=== PATIENT | female | born 1955 | race Caucasian/White ===

== ENCOUNTER 2019-05-18 16:37 | Emergency (ER) | payer SELFPAY ==
--- NOTE | 2019-05-18 17:07 | ER Document Report ---
ED General - General Chief Complaint: Back Pain Stated Complaint: BACK PAIN Time Seen by Provider: 05/18/19 16:50 - HPI Notes: Patient is a 63-year-old female who presents emergency department for evaluation of chest pain, radiating to the back. She states this started over the last several days. She was initially being treated for shingles. She states that she was on prednisone for that until . She states starting then she started having an increase in her pain. Her pain changed in character over the last 48 hours. She states it seems to be in her back and radiates forward to her chest. It seems to be on both sides. She states when the pain is severe she feels somewhat short of breath. She denies any associated nausea, diaphoresis, near syncope. She states she does feel just exceptionally weak. She does note that when lifting groceries yesterday her pain seems to be worsened. Nothing seems to make it better. - Related Data Home Medications: Patient is on multiple supplements, no prescription medications or regular hwsm-jle-myeytrk medications otherwise Past Medical History - General Information source: Patient - Social History Smoking Status: Never Smoker Family History: CAD Musculoskeletal Medical History: Reports Other - Vertebral compression fracture Review of Systems - Review of Systems Constitutional: No symptoms reported EENT: No symptoms reported Cardiovascular: See HPI Respiratory: No symptoms reported Gastrointestinal: No symptoms reported Genitourinary: No symptoms reported Musculoskeletal: See HPI Skin: No symptoms reported Neurological/Psychological: No symptoms reported Physical Exam - Vital signs Vitals: Resp Pulse Ox 17 98 05/18/19 16:46 05/18/19 16:46 - Notes Notes: Vital signs reviewed, please refer to chart. Head is normocephalic, atraumatic. Pupils equal round, reactive to light. Neck is supple without meningismus. Heart is regular rate and rhythm. Lungs are clear to auscultation bilaterally. Abdomen is soft, nontender, normoactive bowel sounds throughout. Extremities without cyanosis, clubbing. Posterior calves are nontender. Peripheral pulses are equal. Skin is warm and dry. She does have the sequelae of healing shingles rash on the left, approximately the eighth dermatome. No active vesicles. Patient is awake, alert, neurological exam is nonfocal. Examination of the spine is no midline tenderness or step-off. She has marked paraspinal musculature tenderness at approximately T2-T4, right greater than left. Course - Re-evaluation Re-evalutation: 05/18/19 20:03 Patient presents emergency department for evaluation of chest pain with radiation into the back. Her back pain was reproducible. I was concerned, however, with this presentation of pain for the possibility of an aortic dissection or pulmonary embolus. Laboratory investigations were obtained, CT angiogram of the chest abdomen pelvis ordered as well. Laboratory vesication's failed to reveal any significant abnormality. CTA failed to reveal any signs of abnormality of her aorta or lungs. Patient states that her pain is exacerbated by moving from the CT table. I strongly suspect this is all musculoskeletal in nature. I did offer her medication, she states that she is "very sensitive" to most medications. I told her that I would write her a small amount of a muscle relaxer and anti-inflammatory, she could take these at her discretion. Otherwise we will refer her on to primary care, she is to return to the ED with worsening or new concerning symptoms of any sort. - Vital Signs Vital signs: Temp Pulse Resp BP Pulse Ox 12 114/64 100 05/18/19 17:00 05/18/19 16:49 05/18/19 17:01 - Laboratory Result Diagrams: 05/18/19 16:55 05/18/19 16:55 Laboratory results interpreted by me: 05/18/19 05/18/19 16:55 16:55 Lymph % (Auto) 12.4 L Seg Neutrophils % 79.8 H Calcium 10.5 H - EKG Interpretation by Me Additional EKG results interpreted by me: 05/18/19 17:06 Sinus mechanism with rate of 72 bpm. Normal axis and intervals, no acute ST changes concerning for ischemia or infarction. Discharge - Discharge Clinical Impression: Musculoskeletal back pain Chest pain Qualifiers: Chest pain type: unspecified Qualified Code(s): R07.9 - Chest pain, unspecified Condition: Stable Disposition: HOME, SELF-CARE Instructions: Warm Packs ([facility]), Chest Pain of Unclear Cause ([facility]) Additional Instructions: Moist heat to the painful area as discussed. Take medications as prescribed, preferably with food. Follow-up with primary care next week. Return the emerg ency department with worsening or concerning symptoms of any sort.
[2019-05-18 17:12] LABS: ABSOLUTE BASOPHILS # (AUTO) 0.1 10^3/uL (0.0-0.2); ABSOLUTE EOSINOPHILS # (AUTO) 0.1 10^3/uL (0.0-0.6); ABSOLUTE LYMPHOCYTES (AUTO) 1.1 10^3/uL (0.5-4.7); ABSOLUTE MONOCYTES (AUTO) 0.6 10^3/uL (0.1-1.4); ABSOLUTE NEUT (AUTO) 7.2 10^3/uL (1.7-8.2); BASOPHILS % (AUTO) 0.7 % (0-2); EOSINOPHILS % (AUTO) 0.7 % (0-6); HEMATOCRIT 37.7 % (36.0-47.0); HEMOGLOBIN 12.9 g/dL (12.0-15.5); LYMPHOCYTES % (AUTO) 12.4 % (13-45); MEAN CORPUSCULAR HEMOGLOBIN 30.5 pg (27.0-33.4); MEAN CORPUSCULAR HGB CONC 34.1 g/dL (32.0-36.0); MEAN CORPUSCULAR VOLUME 89 fl (80-97); MONOCYTES % (AUTO) 6.4 % (3-13); PLATELET COUNT 252 10^3/uL (150-450); RED BLOOD COUNT 4.22 10^6/uL (3.72-5.28); SEGMENTED NEUTROPHILS % (AUTO) 79.8 % (42-78); TOTAL CELLS COUNTED % (AUTO) 100 %
[2019-05-18 17:30] LABS: ALBUMIN 4.4 g/dL (3.5-5.0); ALKALINE PHOSPHATASE 51 U/L (38-126); ANION GAP 8 (5-19); ASPARTATE AMINO TRANSFERASE 21 U/L (14-36); BLOOD UREA NITROGEN 8 mg/dL (7-20); CALCIUM 10.5 mg/dL (8.4-10.2); CARBON DIOXIDE 26 mmol/L (22-30); CHLORIDE 104 mmol/L (98-107); CREATINE KINASE 38 U/L (30-135); GLUCOSE 100 mg/dL (75-110); TOTAL PROTEIN 7.1 g/dL (6.3-8.2)
[2019-05-18 17:42] LABS: CREATINE KINASE MB 0.26 ng/mL (<4.55)
[2019-05-18 17:43] LABS: TROPONIN I < 0.012 ng/mL
--- NOTE | 2019-05-18 18:17 | RADIOLOGY REPORT (SQ) ---
EXAM DESCRIPTION: CTA CHEST COMPLETED DATE/TIME: 05/18/2019 5:54 pm REASON FOR STUDY: chest pain, radiation to back, eval aorta COMPARISON: None. TECHNIQUE: CT scan of the chest performed using helical scanning technique with dynamic intravenous contrast injection. Images reviewed with lung, soft tissue and bone windows. Reconstructed coronal and sagittal MPR images reviewed. Additional 3 dimensional post-processing performed to develop Maximal Intensity Projection images ([place] P). All images stored on PACS. All CT scanners at this facility use dose modulation, iterative reconstruction, and/or weight based d osing when appropriate to reduce radiation dose to as low as reasonably achievable (ALARA). [facility]: Dose Right [facility]: CareDose [facility]: Dose Right [facility]: Teradose 4D [facility]: Lumiy CONTRAST TYPE AND DOSE: contrast/concentration: Isovue 350.00 mg/ml; Total Contrast Delivered: 53.0 ml; Total Saline Delivered: 78.0 ml RENAL FUNCTION: GFR > 60. RADIATION DOSE: CT Rad equipment meets quality standard of care and radiation dose reduction techniq ues were employed. CTDIvol: 14.3 - 19.8 mGy. DLP: 578 mGy-cm. . LIMITATIONS: None. FINDINGS: LUNGS AND PLEURA: No masses, infiltrates, or pneumothorax. No pleural effusions or pleura l calcifications. AORTA AND GREAT VESSELS: No aneurysm. Contrast bolus not optimized for the aorta. HEART: No pericardial effusion. No significant coronary artery calcifications. PULMONARY ARTERIES: No emboli visualized in the main pulmonary arteries or the segmental branches. HILAR AND MEDIASTINAL STRUCTURES: No identified masses or abnormal nodes. HARDWARE: None in the chest. UPPER ABDOMEN: No significant findings. Limited exam. THYROID AND OTHER SOFT TISSUES: No masses. No adenopathy. BONES: Nothing acute. Osteopenia. Old compression fracture T9. 3D MIPS: Confirm above findings. OTHER: No other significant finding. IMPRESSION: No aneurysm or dissection. No acute findings. COMMENT: Quality ID # [id number]: Final reports with documentation of one or more dose reduction techniques (e.g., Automated exposure control, adjustment of the mA and/or kV according to patient size, use of iterative reconstruction technique) TECHNICAL DOCUMENTATION: JOB ID: [id number] [employer]- All Rights Reserved Reading location - IP/workstation name: [email or web address]
[2019-05-18 20:14] VITALS: BP 109/64
--- NOTE | 2019-05-18 21:25 | EKG REPORT ---
SEVERITY:- NORMAL ECG - SINUS RHYTHM : Confirmed by: Ck William MD 18-May-2019 21:24:48
== END 2019-05-18 20:14 | disposition home or self-care (01) ==
LOC: ER 16:37
DX: M54.9 Dorsalgia, unspecified (principal); R07.9 Chest pain, unspecified
CPT/HCPCS: 36415; 71275; 80053; 82550; 82553; 84484; 85025; 93005; 93010; 99284

== ENCOUNTER 2019-12-24 08:30 | Emergency (ER) | payer MEDICARE, OTHER ==
--- NOTE | 2019-12-24 08:57 | ER Document Report ---
ED GI/ - General Mode of Arrival: Medic Information source: Patient TRAVEL OUTSIDE OF THE [place] IN LAST 30 DAYS: No <KEL MAIN - Last Filed: 12/24/19 14:46> <JYOTSNA BARCLAY - Last Filed: 12/24/19 16:23> - General Chief Complaint: Constipation Stated Complaint: ABDOMINAL PAIN Time Seen by Provider: 12/24/19 08:41 Primary Care Provider: BHAVANA GIMENEZ PA-C [Primary Care Provider] - Follow up as needed Notes: 64-year-old woman presents to the emergency department with a complaint of the patient. She states for the past 3 days she has not had a bowel movement. She is given herself Colace and also a fleets enema last night with poor results. Notes a history of compression fractures in lower back and has had increasing back pain over the past 3 days. Using Tylenol and ibuprofen for pain, has discontinued it as the constipation has worsened. Called her primary care doctor and was directed to come to the emergency department. (KEL MAIN) - HPI Notes: 12/24/19 16:19 Patient is a 64-year-old female who presents to the emergency department for evaluation of constipation. She states she normally actually has diarrhea. She has a history of multiple compression fractures in her back. She states she notices "events" that caused her an increase in pain. She normally takes Tylenol or ibuprofen. She states that a little over 2 weeks ago she had another "event" and had an increase in her back pain. She states that since then she has had constipation. She saw her primary care provider, who recommended Colace, then a fleets enema. She did have a small amount of relief with that, but states she really has not had much of a bowel movement in the last 5 days. She is still passing gas. She denies any incontinence, no saddle anesthesia, no focal numbness or weakness. (JYOTSNA BARCLAY) - Related Data Allergies/Adverse Reactions: No Known Allergies Allergy (Verified 12/24/19 08:37) Past Medical History - Social History Smoking Status: Never Smoker Frequency of alcohol use: Occasional Drug Abuse: None Family History: CAD Patient has homicidal ideation: No <KEL MAIN - Last Filed: 12/24/19 14:46> Review of Systems <KEL MAIN - Last Filed: 12/24/19 14:46> - Review of Systems Notes: Constitutional: Negative for fever. HENT: Negative for sore throat. Eyes: Negative for visual changes. Cardiovascular: Negative for chest pain. Respiratory: Negative for shortness of breath. Gastrointestinal: + Constipation Genitourinary: Negative for dysuria. Musculoskeletal: +back pain. Skin: Negative for rash. Neurological: Negative for headaches, weakness or numbness. 10 point ROS negative except as marked above and in HPI. (KEL MAIN) Physical Exam <KEL MAIN - Last Filed: 12/24/19 14:46> <JYOTSNA BARCLAY - Last Filed: 12/24/19 16:23> - Vital signs Vitals: Temp 98.1 F 12/24/19 08:30 - Notes Notes: PHYSICAL EXAMINATION: Physical Exam: General: Well-nourished well-developed 64 yo in no acute distress HEENT: NC/AT, pupils equal round and reactive to light, MM moist,nares clear, oropharynx clear, airway patent Neck: supple, no adenopathy, no masses. Good range of motion Lungs: clear, no wheezing, no rales no rhonchi CVS: Regular rate and rhythm no murmur gallop or rub Abdomen: Soft, active, nontender, no masses Extremity/musculoskeletal: + Lumbar back pain L3-4-5 region, tenderness in the paraspinous muscle group Neuro: Alert and responsive, moving all 4 extremities on command, cranial nerves intact, no focal findings Skin: Intact no open lesions, no rash PSYCH: Normal mood, normal affect. (KEL MAIN) Head is normocephalic and atraumatic, pupils are equal round, reactive to light. Oral mucosa is moist. Heart regular rhythm, lungs are clear bilaterally. Abdomen soft, nontender, normoactive bowel sounds. (JYOTSNA BARCLAY) Course - Diagnostic Test Radiology reviewed: Image reviewed, Reports reviewed - X-ray KUB: Moderate constipation, no obstruction. CT lumbar spine: Multiple level compression fracture, age indeterminate, suggest MRI. <NILSAKEL NARANJO - Last Filed: 12/24/19 14:46> - Diagnostic Test Radiology reviewed: Reports reviewed <JYOTSNA BARCLAY - Last Filed: 12/24/19 16:23> - Re-evaluation Re-evalutation: 12/24/19 14:34 CT scan of the lumbosacral spine was performed reveals multiple compression fractures suggested MRI be performed to identify acuity and possible candidate for kyphoplasty. Patient was given soapsuds enema with very little response. 12/24/19 14:46 I discussed the patient with Dr. Barclay, she will follow-up on the MRI and also constipation. (KEL MAIN) 12/24/19 16:20 Patient presents to the emergency department for evaluation. She was initially seen by Dr. Main. The patient's MRI revealed subacute appearing compression fractures, spinal stenosis. Nothing acute. Patient states that this is not surprising, her pain seems consistent with that. In regards to her constipation, the patient did have some increased results after returning from MRI. She states that primarily her discomfort is on the right side. I would like to try her with a stimulant laxative at home. 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 I sent her with a bottle of magnesium citrate, which she is to drink upon going home. We talked at length about dietary choices which may decrease her constipation. She understands that, given that this is a significant change in her bowel habits, it may be advisable as well for her to have a colonoscopy. She voiced understanding to this. Otherwise, she is to follow-up with rheumatology, primary care, and GI as discussed. Return to the ED with worsening or new concerning symptoms of any sort. (JYOTSNA BARCLAY) - Vital Signs Vital signs: Temp Pulse Resp BP Pulse Ox 98.3 F 72 17 133/71 H 99 12/24/19 12:13 12/24/19 12:13 12/24/19 12:13 12/24/19 12:13 12/24/19 12:13 - Laboratory Laboratory results interpreted by me: 12/24/19 09:27 Urine Ketones TRACE H - Diagnostic Test Radiology results interpreted by me: 12/24/19 16:21 KUB X-Ray 12/24/19 08:55 IMPRESSION: Moderate constipation. No obstruction. Lumbar Spine CT 12/24/19 08:55 IMPRESSION: 1. Multiple compression fractures including T12, L2, L3, L4 and L5. Age is indeterminate. No retropulsion. Recommend MRI for further evaluation. The patient may be a candidate for kyphoplasty. If the patient cannot have MRI bone scan would be indicated. 2. Moderate to severe central canal stenosis at L4-L5 secondary to annular disc bulging and bilateral facet arthropathy. There is asymmetric narrowing of the right neural foramina. Lumbar Spine MRI 12/24/19 12:00 IMPRESSION: Mild facet and ligament hypertrophy with mild central canal stenosis at L3-4. Broad-based disc bulge with mild facet and ligament hypertrophy with moderate central canal stenosis and mild right foraminal stenosis at L4-5. Multilevel compression changes that do not appear acute. (JYOTSNA BARCLAY) Discharge <KEL MAIN - Last Filed: 12/24/19 14:46> <JYOTSNA BARCLAY - Last Filed: 12/24/19 16:23> - Discharge Clinical Impression: Compression fracture Lumbar spinal stenosis Qualifiers: Neurogenic claudication status: without neurogenic claudication Qualified Code(s): M48.061 - Spinal stenosis, lumbar region without neurogenic claudication Constipation Qualifiers: Constipation type: unspecified constipation type Qualified Code(s): K59.00 - Constipation, unspecified Condition: Stable Disposition: HOME, SELF-CARE Instructions: Constipation ([facility]), Compression Fracture of the Spine ([facility]) Additional Instructions: Please follow-up with your primary care provider, and commission for the blind director. You kathy uld also discuss a possible colonoscopy with gastroenterology regarding this change in bowel habits. Continue your Tylenol and ibuprofen, you can take ibuprofen 400 mg every 6 hours, and Tylenol 975 mg every 8 hours as discussed. Please be sure to take the Tylenol with food. Otherwise increase water and fiber intake. Drink all of the magnesium citrate at home as prescribed. Please be aware this will cause cramping. If you develop worsening or new concerning symptoms of any sort, please return immediately to the emergency department for evaluation. Referrals: BHAVANA GIMENEZ PA-C [Primary Care Provider] - Follow up as needed
[2019-12-24 09:49] LABS: APPEARANCE,URINE CLEAR; BILIRUBIN,URINE NEGATIVE (NEGATIVE); COLOR,URINE STRAW; GLUCOSE, URINE NEGATIVE (NEGATIVE); KETONES,URINE TRACE mg/dL (NEGATIVE); LEUKOCYTE ESTERASE,URINE NEGATIVE (NEGATIVE); NITRITE,URINE NEGATIVE (NEGATIVE); PROTEIN,URINE NEGATIVE (NEGATIVE); URINE SPECIFIC GRAVITY 1.003; UROBILINOGEN,URINE NEGATIVE mg/dL (<2.0)
--- NOTE | 2019-12-24 10:19 | RADIOLOGY REPORT (SQ) ---
EXAM DESCRIPTION: KUB/ABDOMEN (SINGLE VIEW) IMAGES COMPLETED DATE/TIME: 12/24/2019 10:00 am REASON FOR STUDY: Constipation COMPARISON: None. NUMBER OF VIEWS: One view. TECHNIQUE: Supine radiographic image of the abdomen acquired. LIMITATIONS: None. FINDINGS: BOWEL GAS PATTERN: Gas pattern is nonobstructive. There is large amount of stool througho ut the colon consistent with constipation. CALCIFICATIONS: No suspicious calcifications. SOFT TISSUES: No gross mass or suggestion of organomegaly. HARDWARE: None in the abdomen. BONES: No acute fracture. No worrisome bone lesions. OTHER: No other significant finding. IMPRESSION: Moderate constipation. No obstruction. TECHNICAL DOCUMENTATION: JOB ID: [id number] 2010 [employer] All Rights Reserved Reading location - IP/workstation name: [email or web address]
--- NOTE | 2019-12-24 10:25 | RADIOLOGY REPORT (SQ) ---
EXAM DESCRIPTION: CT LUMBAR SPINE WITHOUT IMAGES COMPLETED DATE/TIME: 12/24/2019 10:04 am REASON FOR STUDY: Compression fracture COMPARISON: None. TECHNIQUE: Axial images acquired through the lumbar spine without intravenous contrast. Images revi ewed with lung, soft tissue and bone windows. Reconstructed coronal and sagittal MPR images reviewed . All images stored on PACS. All CT scanners at this facility use dose modulation, iterative reconstruction, and/or weight based d osing when appropriate to reduce radiation dose to as low as reasonably achievable (ALARA). [facility]: Dose Right [facility]: CareDose [facility]: Dose Right [facility]: Teradose 4D [facility]: MyAGENT RADIATION DOSE: mGy. LIMITATIONS: None. FINDINGS: SEGMENTATION: Normal. No transitional anatomy. ALIGNMENT: Normal. VERTEBRAL BODIES: There compression deformities involving T12, L2, L3, L4 and L5. Ages are indetermi todd. There is no retropulsion. DISCS: Broad-based annular disc bulging at 4 5. This along with the set arthropathy results in moder ate to severe central stenosis. There is asymmetric narrowing of the right neural foramina. PEDICLES, TRANSVERSE PROCESSES: No fractures. No dislocation. No acute findings. FACETS, POSTERIOR ELEMENTS: No fractures. No dislocation. No spinal stenosis. HARDWARE: None in the spine. VISUALIZED RIBS: No fractures. SOFT TISSUES: No significant or acute finding in adjacent soft tissues. OTHER: No other significant finding. IMPRESSION: 1. Multiple compression fractures including T12, L2, L3, L4 and L5. Age is indetermina te. No retropulsion. Recommend MRI for further evaluation. The patient may be a candidate for kyph oplasty. If the patient cannot have MRI bone scan would be indicated. 2. Moderate to severe central canal stenosis at L4-L5 secondary to annular disc bulging and bilatera l facet arthropathy. There is asymmetric narrowing of the right neural foramina. TECHNICAL DOCUMENTATION: JOB ID: [id number] Quality ID # [id number]: Final reports with documentation of one or more dose reduction techniques (e.g., Au tomated exposure control, adjustment of the mA and/or kV according to patient size, use of iterative reconstruction technique) 2010 [employer]- All Rights Reserved Reading location - IP/workstation name: [email or web address]
--- NOTE | 2019-12-24 15:27 | RADIOLOGY REPORT (SQ) ---
EXAM DESCRIPTION: MRI LUMBAR SPINE WITHOUT IMAGES COMPLETED DATE/TIME: 12/24/2019 3:09 pm REASON FOR STUDY: compression COMPARISON: None. TECHNIQUE: Sagittal and Axial imaging includes T1, T2, STIR and gradient echo sequences. Coronal T2/ HASTE imaging. LIMITATIONS: None. FINDINGS: VISUALIZED UPPER ABDOMEN: Limited evaluation. No acute or suspicious findings suggested. SEGMENTATION: No transitional anatomy. The lowest well-developed disc space is labeled L5-S1. ALIGNMENT: Anatomic. VERTEBRAE: Subacute/old compression changes at T12, L2, L3, and L4. BONE MARROW: Normal. No marrow replacement or reactive changes. DISC SIGNAL: Normal. No significant abnormal signal or loss of height. POSTERIOR ELEMENTS: Generally intact. No pars defect evident. HARDWARE: None in the spine. CORD AND CONUS: Normal in size and signal intensity. Conus at the L1-2 level. SOFT TISSUES: No aortic aneurysm seen. No bulky retroperitoneal adenopathy or mass. No paraspinal mas s or fluid. T11-12: No significant spinal stenosis or exit foraminal stenosis. T12-L1: No significant spinal stenosis or exit foraminal stenosis. L1-L2: No significant spinal stenosis or exit foraminal stenosis. L2-L3: No significant spinal stenosis or exit foraminal stenosis. L3-L4: Mild facet and ligament hypertrophy. Mild central canal stenosis. L4-L5: Shallow broad-based disc bulge. Mild facet and ligament hypertrophy. Central canal stenosis. Mild right foraminal stenosis. L5-S1: No significant spinal stenosis or exit foraminal stenosis. LOWER THORACIC: Incompletely imaged. No stenosis seen. SACRUM: Visualized upper sacrum intact. OTHER: No other significant findings. IMPRESSION: Mild facet and ligament hypertrophy with mild central canal stenosis at L3-4. Broad-bas ed disc bulge with mild facet and ligament hypertrophy with moderate central canal stenosis and mild right foraminal stenosis at L4-5. Multilevel compression changes that do not appear acute. TECHNICAL DOCUMENTATION: JOB ID: [id number] [employer]- All Rights Reserved Reading location - IP/workstation name: [email or web address]
[2019-12-24] MEDS ORDERED: MAGNESIUM CITRATE 296 ML BOTTLE PO ONE (16:18)
[2019-12-24 16:52] VITALS: BP 123/66
== END 2019-12-24 16:54 | disposition home or self-care (01) ==
LOC: ER 08:30
DX: M48.54XA Collapsed vertebra, not elsewhere classified, thoracic region, initial encounter for fracture (principal); M48.56XA Collapsed vertebra, not elsewhere classified, lumbar region, initial encounter for fracture; M48.061 Spinal stenosis, lumbar region without neurogenic claudication; K59.00 Constipation, unspecified; M54.9 Dorsalgia, unspecified; Z79.899 Other long term (current) drug therapy
CPT/HCPCS: 99284; 81001; 72148; 74018; 72131; A9270; J3490